=== PATIENT | male | born 1955 | race Caucasian/White ===

== ENCOUNTER 2022-10-03 08:14 | Inpatient (IN) | payer OTHER ==
[2022-10-03 09:07] VITALS: BMI 20.1
[2022-10-03] MEDS ORDERED: MAG HYDROX/AL HYDROX/SIMETH 30 ML UNIT-DOSE CUP PO PRN (09:46)
[2022-10-03] MEDS ORDERED: BENZOCAINE/MENTHOL (CHLORASEPTIC ) LOZENGE MM PRN (09:46)
[2022-10-03] MEDS ORDERED: P-EPHED 60MG/TRIPROLIDI 2.5MG TABLET PO PRN (09:46)
[2022-10-03] MEDS ORDERED: LOPERAMIDE HCL 2 MG CAPSULE PO PRN (09:46)
[2022-10-03] MEDS ORDERED: NICOTINE 7 MG/24 HOURS TOPICAL PATCH TD PRN (09:46)
[2022-10-03] MEDS ORDERED: MAGNESIUM HYDROX 2400MG/30ML ORAL SUSPENSION 30 ML CUP PO PRN (09:46)
[2022-10-03] MEDS ORDERED: IBUPROFEN 600 MG TABLET (FP) PO PRN (09:46)
[2022-10-03] MEDS ORDERED: DICYCLOMINE HCL 10 MG CAPSULE PO PRN (09:46)
[2022-10-03] MEDS ORDERED: IBUPROFEN 400 MG TABLET (FP) PO PRN (09:46)
[2022-10-03] MEDS ORDERED: NICOTINE POLACRILEX 2 MG GUM BUC PRN (09:46)
[2022-10-03] MEDS ORDERED: ONDANSETRON *ODT* 4 MG TABLET SL PRN (09:46)
[2022-10-03] MEDS ORDERED: METHOCARBAMOL 500 MG TABLET PO PRN (09:46)
[2022-10-03] MEDS ORDERED: ACETAMINOPHEN 325 MG TABLET (FP) PO PRN ×2 (09:46)
[2022-10-03] MEDS ORDERED: POLYETHYLENE GLYCOL (HEALTHYLAX) 3350 17 GM PACKET PO PRN (09:46)
[2022-10-03] MEDS ORDERED: hydrOXYzine PAMOATE 25 MG CAPSULE (FP) PO PRN (09:46)
[2022-10-03] MEDS ORDERED: NICOTINE 10 MG CARTRIDGE (INHALER) IH PRN (09:46)
[2022-10-03] MEDS ORDERED: BISMUTH SUBSALICYLATE 524 MG/30 ML PO PRN (09:46)
[2022-10-03] MEDS ORDERED: diazePAM 5 MG TABLET PO PRN (10:47)
[2022-10-03] MEDS ORDERED: diazePAM 5 MG TABLET ONE (11:05)
[2022-10-03] MEDS: PRENATAL VITAMINS W/ FOLIC ACID TABLET (FP) PO SCH (12:17)
[2022-10-03] MEDS: diazePAM 5 MG TABLET PO SCH ×3 (12:17→22:29)
[2022-10-03] MEDS: ASPIRIN 81 MG CHEWABLE TABLETS PO SCH (12:19)
[2022-10-03] MEDS ORDERED: guaiFENesin 200 MG/10 ML 10 ML UNIT-DOSE CUPS PO PRN (22:07)
[2022-10-03] MEDS: THIAMINE HCL 100 MG TABLET (FP) PO SCH (22:29)
[2022-10-03] MEDS: ROSUVASTATIN CA 20 MG TABLET PO SCH (22:29)
[2022-10-03] MEDS: MELATONIN 5 MG TABLETS PO SCH (22:29)
[2022-10-04] MEDS: diazePAM 5 MG TABLET PO SCH ×4 (05:28→22:18)
[2022-10-04] MEDS: PRENATAL VITAMINS W/ FOLIC ACID TABLET (FP) PO SCH (10:17)
[2022-10-04] MEDS: ASPIRIN 81 MG CHEWABLE TABLETS PO SCH (10:17)
[2022-10-04 11:10] LABS: HEMATOCRIT 40.1 % (35.4-49); MCH 30.9 pg (25.7-33.7); MCHC 32.5 g/dl (32.0-35.9); MEAN CELL VOLUME 95.1 fl (80-96); MEAN PLT VOLUME 8.1 fl (7.5-11.1); PLATELET COUNT 264 10^3/uL (134-434); RBC 4.22 M/mm3 (4.00-5.60); RDW 14.3 % (11.9-15.9); WHITE BLOOD COUNT 6.4 K/mm3 (4.0-10.0)
[2022-10-04 11:17] LABS: ALBUMIN 2.9 g/dl (3.4-5.0); BLOOD UREA NITROGEN 10.5 mg/dL (7-18); CALCIUM 8.4 mg/dL (8.5-10.1)
[2022-10-04 11:20] LABS: CREATININE 0.5 mg/dL (0.55-1.3)
[2022-10-04 11:22] LABS: BILIRUBIN,TOTAL 0.2 mg/dL (0.2-1); TOT PROT 5.2 g/dl (6.4-8.2)
[2022-10-04 16:44] VITALS: RESP 18
[2022-10-04] MEDS: MELATONIN 5 MG TABLETS PO SCH (22:16)
[2022-10-04] MEDS: THIAMINE HCL 100 MG TABLET (FP) PO SCH (22:16)
[2022-10-04] MEDS: ROSUVASTATIN CA 20 MG TABLET PO SCH (22:17)
[2022-10-05] MEDS ORDERED: diazePAM 5 MG TABLET PO SCH (06:00)
[2022-10-05 06:09] VITALS: BP 136/77; PULSE 82; TEMP 97.1
[2022-10-06] MEDS ORDERED: diazePAM 5 MG TABLET PO SCH (06:00)
[2022-10-07] MEDS ORDERED: diazePAM 5 MG TABLET PO ONE (06:00)
== END 2022-10-05 09:20 | disposition left against medical advice (07) | DRG 894 ==
LOC: YASAS 08:14 → Y3N 11:03
PROVIDERS: ADMIT Allergy & Immunology; ATTEND Surgery
PROC: HZ2ZZZZ Detoxification Services for Substance Abuse Treatment (ICD-10-PCS; principal; 2022-10-03)
DX: F10.230 Alcohol dependence with withdrawal, uncomplicated (principal); F14.20 Cocaine dependence, uncomplicated; F17.210 Nicotine dependence, cigarettes, uncomplicated; F25.0 Schizoaffective disorder, bipolar type; R05.9 Cough, unspecified
CPT/HCPCS: 36415; 71045-TC-FY; 80053; 82140; 85027; 86780; 87811; C9803-CS; U0003; U0005